=== PATIENT | female | born 1955 | race Caucasian/White ===

== ENCOUNTER → 2021-02-02 08:55 | Outpatient (BNVA) | payer OTHER, SELFPAY | PROVIDERS: PCP Nurse Practitioner Family; Referring Provider Nurse Practitioner Family; Visit Provider Specialist | DX: M54.2 Cervicalgia (principal); G44.209 Tension-type headache, unspecified, not intractable | CPT/HCPCS: 99204 ==

== ENCOUNTER 2022-01-12 11:10 | Outpatient (CLI) | payer MEDICARE, SELFPAY ==
--- NOTE | 2022-01-12 11:20 | XR_ITS ---
WS: [id number] DEXA (DUAL ENERGY X-RAY ABSORPTIOMETRY) Bone mineral density was performed using a Pay with a Tweet machine. HISTORY: MENOPAUSAL COMPARISON: None available. Lumbar spine BMD (L1-L4): 0.831 g/cm2 T score: -2.9 Z score: -1.8 Total hip BMD: Left: 0.694 g/cm2. T score: -2.5 Z score: -1.6 Right: 0.814 g/cm2. T score: -1.5 Z score: -0.6 10 year probability of a major osteoporotic fracture is 27.5%. XR/XR DEXA axial skeleton* 24144 IMPRESSION: OSTEOPOROSIS based upon the WHO classification for females.
--- NOTE | 2022-01-12 11:20 | MM_ITS ---
WS: [id number] Bilateral screening 3D tomosynthesis digital mammogram, 01/12/2022 Clinical Data: SCREENING Comparison: 05/26/2020, 05/10/2020. Findings: The breast parenchymal pattern shows fat replacement. No spiculated masses or clustered calcification s are seen. There are no secondary signs of carcinoma. There are mole markers on the left breast. The re are lymph nodes in both axilla. MM/[place] [id number] Impression: 1. Negative bilateral mammogram unchanged. 2. Recommend annual screening mammograms. BIRADS: 1-Negative FOLLOW UP: 1 Year Follow-up The CAD credit rating checker was used.
== END 2022-01-12 11:11 | disposition home or self-care (01) ==
LOC: RAD 11:16
PROVIDERS: PCP Nurse Practitioner Family; Visit Provider Nurse Practitioner Family
DX: Z12.31 Encounter for screening mammogram for malignant neoplasm of breast (principal); Z78.0 Asymptomatic menopausal state; M81.0 Age-related osteoporosis without current pathological fracture
CPT/HCPCS: 77063; 77067; 77080

== ENCOUNTER → 2022-02-07 13:15 | Outpatient (BNVA) | payer MEDICARE, SELFPAY | PROVIDERS: PCP Nurse Practitioner Family; Visit Provider Internal Medicine | DX: R07.9 Chest pain, unspecified (principal); E78.00 Pure hypercholesterolemia, unspecified | CPT/HCPCS: 93005; 99204 ==

== ENCOUNTER 2022-05-06 01:31 | Observation (INO) | payer MEDICARE, SELFPAY ==
[2022-05-06] VITALS (8 sets, daily range): BP systolic 106–131; BP diastolic 61–70; PULSE 46–51; RESP 16–19; TEMP 36.4–37; O2SAT 97–99; BMI 28.1; BMI 26.4
--- NOTE | 2022-05-06 01:38 | PC.NURSE ---
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 disc and copy of chart received as well, given to dr lord. awaiting orders.
--- NOTE | 2022-05-06 01:56 | W.ED.GENADLT ---
HPI - General Adult General: Chief complaint: General Medical Stated complaint: KIDNEY STONE Time Seen by Provider: 05/06/22 01:35 Source: patient History of Present Illness: 66-year-old female with a history of kidney stones. She presents with left-sided flank pain that started earlier in the evening. She denies any fever. The pain was significant on her presentation to the outside facility. She rates it at a 4-4-1/2 now. She is afebrile Onset (ago): hour(s) Location: abdomen and left Radiation: back Associated symptoms: Reports nausea; Deny chest pain, dyspnea, fevers/chills, rash, short of breath or vomiting Review of Systems Const: Denies: fever(s) Card: Denies: chest pain Resp: Denies: dyspnea GI: Reports: abdominal pain and nausea; Denies: vomiting : Reports: flank pain Musc: Reports: back pain Skin/Breast: Denies: rash PFSH ED PFSH: Medical History Hypercholesteremia Surgical History History of cholecystectomy History of total hysterectomy History of tubal ligation Family History Mother Cancer Diabetes Social History Smoking and tobacco status: never smoked Alcohol intake: never Physical Exam Const: GENERAL APPEARANCE: cooperative; not ill appearing HENMT: COMMON NORMALS: normocephalic and atraumatic HEAD & SCALP: normocephalic and atraumatic Eye: COMMON NORMALS: Equal, round and reactive pupils present and EOMs intact bilaterally PUPIL: Yes Equal, round and reactive pupils present Neck/C-Spine: GENERAL: Yes trachea midline Resp: COMMON NORMALS: normal respiratory effort, No use of accessory muscles and clear to auscultation bilaterally AUSCULTATION: clear to auscultation bilaterally Cardio: COMMON NORMALS: regular rate and regular rhythm RATE: regular rate RHYTHM: regular rhythm GI: COMMON NORMALS: Normal to inspection, nondistended, normoactive bowel sounds present and Soft to palpation PALPATION: Yes Soft to palpation : BLADDER/KIDNEY EXAM: Yes CVA tenderness on the left Back/Pelvis: GENERAL BACK: Yes CVA tenderness Neuro: IVAN COMA SCALE: document GCS findings [place] coma scale eye opening: Spontaneous [place] coma scale verbal response: Orientated Ivan coma scale motor response: Obey commands [place] coma scale total score: 15 Psych: COMMON NORMALS: cooperative Course Vital Signs: Vital signs: Vital Signs Temperature 97.9 F 05/06/22 01:35 Pulse Rate 46 L 05/06/22 02:09 Respiratory Rate 17 05/06/22 02:09 Blood Pressure 128/70 05/06/22 02:09 Pulse Oximetry 98 05/06/22 02:09 Oxygen Delivery Me thod 05/06/22 02:09 MDM - General Adult Medical Decision Making Spoke with urology about this patient. She has a left-sided UPJ 5 mm stone. She has 6-10 white blood cells with leukocyte esterase in her urine. Minimal contamination. No findings suggestive of pyelonephritis on the CT. Her white blood cell count was normal. Her pain is decently well controlled. She is given morphine here in the ER. She did receive 10 mg of IV Toradol at the outside facility. She also received Rocephin there. Urology requests admission, continuing IV fluids and antibiotics as well as pain control. They will evaluate later in the morning. She will be placed on liquids after lunch in case procedure necessary this morning. Discharge Plan Discharge Patient Disposition: Admitted As Inpatient Admit Provider: Gerber Moore Clinical Impression: Ureterolithiasis, Urinary tract infection Condition: Stable Coding Level of Care Code ED Decorating Kiln Operator for Yodit Fwd Exam Comprehensive
[2022-05-06] MEDS: ondansetron 2 mg/ML SDV 2 mL 4 MG IVP (02:05)
[2022-05-06] MEDS: morphine 4 mg/mL SDV 1 mL IVP (02:05)
--- NOTE | 2022-05-06 02:56 | PC.NURSE ---
report called to prateek paez, patient accepted to 250-2 med surg.
[2022-05-06] MEDS: cefTRIAXone 1,000 MG in sodium chloride 0.9% (plus) 50 ML 100 MG IV (04:22)
[2022-05-06] MEDS: pantoprazole 40 mg SDV IVP (04:22)
[2022-05-06] MEDS: sodium chloride 0.9% 1,000 ML 100 ML IV (04:23)
[2022-05-06 05:24] LABS: Basophils % 0.6 %; Eosinophils # 0.1 10^3/uL (0.0-0.8); Eosinophils % 1.3 %; Hematocrit 40.6 % (37.0-47.0); Hemoglobin 12.7 g/dL (11.5-15.3); Lymphocytes # 2.7 10^3/uL (0.8-4.8); Lymphocytes % 39.3 %; Mean Corpuscular HGB Conc 31.3 g/dL (30.0-36.0); Mean Corpuscular Hemoglobin 30.2 pg (28.0-34.0); Mean Corpuscular Volume 96.4 fl (81-99); Mean Platelet Volume 9.9 fL (7.4-10.4); Monocytes # 0.6 10^3/uL (0.2-0.9); Monocytes % 7.9 %; Neutrophils # 3.54 10^3/uL (1.8-7.7); Neutrophils % 50.8 %; Nucleated Red Blood Cells % 0 %; Platelet Count 190 10^3/cmm (130-400); Red Blood Count 4.21 10^6/uL (4.1-5.3); Red Cell Distribution Width 13.3 % (12.1-15.1)
[2022-05-06 05:52] LABS: Alanine Aminotransferase 16 U/L (0-33); Albumin Level 3.6 g/dL (3.5-5.2); Alkaline Phosphatase 48 U/L (35-105); Anion Gap 12.2 (5-19); Aspartate Amino Transferase 14 U/L (0-32); Blood Urea Nitrogen 10 mg/dL (8-23); Calcium 9.3 mg/dL (8.5-10.5); Carbon Dioxide 23 mmol/L (22-29); Chloride 110 mmol/L (98-107); Globulin 2.1 g/dL (1.3-4.6); Glomerular Filtration Rate 83.7 mL/min (90-130); Glucose 83 mg/dL (65-115); Osmolality Calculated 290 mOsm/kg (285-295); Potassium 4.2 mmol/L (3.5-5.1); Sodium 141 mmol/L (136-145); Total Bilirubin 0.3 mg/dL (0.15-1.2); Total Protein 5.7 g/dL (6.6-8.7)
--- NOTE | 2022-05-06 08:22 | XRR_ITS ---
PROCEDURE INFORMATION: Exam: XR Abdomen Exam date and time: 05/06/2022 8:42 AM Age: 66 years old Clinical indication: Abdominal pain; Flank; Left; Additional info: Follow up ureteral stone TECHNIQUE: Imaging protocol: Radiologic exam of the abdomen. Views: Frontal supine view of the abdomen. 1 View. COMPARISON: CT abdomen pelvis w con* [id number] 05/05/2022 11:23 PM FINDINGS: Gastrointestinal tract: No dilated gas-filled loops of bowel. Moderate to large amount of stool in the colon. Intraperitoneal space: Surgical clips in the pelvis and left upper quadrant. Organs: No radiopaque renal or ureteral calculus is evident, with interference in visualization of the kidneys and ureters by overlying enteric contents. Right nephrolithiasis evident on the prior comparison CT scan. Bones/joints: Slight curvature of the lumbar spine convex to the right. XR/XR KUB [id number] IMPRESSION: No radiopaque ureteral calculus visualized.
--- NOTE | 2022-05-06 08:24 | P.HP_ITS ---
Providers/Chief Complaint Admitting Physician: Gerber Moore MD Primary Care Provider: YURY Bourgeois Chief Complaint: Left UPJ stone History of Present Illness Gladis Hansen is a 66 year old female who is evaluated yesterday evening at the [facility] emergency department found to have roughly 5 mm left UPJ stone with obstructive changes. Her symptoms were severe. Work-up: Urinalysis showed mild pyuria with 6-10 white blood cells and 0-6 epithelial cells.. No fever or chills. No unstable hemodynamics. There is no evidence of obstructive pyelonephritis clinically or on CT scan findings. White count was not elevated. Creatinine was normal. Was admitted for symptomatic control as well as coverage with antibiotics because of the pyuria. Other pertinent information: History positive for previous stones Recently evaluated by cardiology for some chest discomfort with a stress test tentatively planned for sometime in the near future. EKG showed no ischemia or rhythm abnormalities during that visit on 02/07/2022. History of osteoporosis Medications/Allergies Home Medications Medication Instructions Recorded Confirmed Last Taken Type naproxen sodium 220 mg capsule 220 mg PO BID PRN Pain 02/02/21 05/06/22 Unknown History (Aleve) gabapentin 300 mg capsule 300 mg PO DAILY PRN Heartburn 02/07/22 05/06/22 Unknown History alendronate 70 mg tablet 70 mg PO .weekly 90 days #12 tabs 03/07/22 05/06/22 05/04/22 09:00 Rx atorvastatin 10 mg tablet 10 mg PO DAILY #30 tabs 04/27/22 05/06/22 05/04/22 09:00 Rx Allergies Allergy/AdvReac Type Severity Reaction Status Date / Time No Known Allergies Allergy Verified 03/07/22 08:18 PFSH Acute PFSH: Medical History Hypercholesteremia Surgical History History of cholecystectomy History of total hysterectomy History of tubal ligation Family History Mother Cancer Diabetes Social History Smoking and tobacco status: never smoked Alcohol intake: never Vitals/I&O/Wt Last Vital Signs Temp 97.5 F L 05/06/22 07:59 Pulse 48 L 05/06/22 07:59 Resp 16 05/06/22 07:59 BP 106/64 05/06/22 07:59 Pulse Ox 97 05/06/22 07:59 O2 Del Method 05/06/22 07:59 05/05/22 05/06/22 05/06/22 22:59 06:59 14:59 Intake Total 50 / 50 Balance 50 / 50 Weight last 48 hrs Weight 164 lb Weight 164 lb Data : 05/06/22 04:10 05/06/22 04:10 A&P Assessment and plan (1) Ureterolithiasis: A 5 mm left UPJ stone diagnosed 05/05/2022. Status: Acute (2) Hypercholesteremia: Status: Acute (3) Age related osteoporosis: Status: Acute Attestations Medical Necessity Statement*: Could not control her symptoms related to renal colic. Additional concern about pyuria and the potential for obstructive pyelonephritis Coding Level of Care Code Acute Electric Blanket Packer for Yodit Adames Diagnoses Ureterolithiasis N20.1 Hypercholesteremia E78.00 Age related osteoporosis M81.0
--- NOTE | 2022-05-06 10:11 | P.SS_ITS ---
Short Stay Summary Providers Date of Admit/Discharge: 05/06/22 Attending Provider: Gerber Moore MD Primary Care Provider: YURY Bourgeois Chief Complaint: Left UPJ stone HPI History of Present Illness Gladis Hansen is a 66 year old female who was evaluated yesterday evening at the [facility] emergency department. A CT scan demonstrated per the ED physician's report a 5 mm LEFT UPJ stone. The preceding symptoms were primarily left upper quadrant abdominal pain not typical for her prior stones. There was no back component or radiation down to the left lower quadrant. No renal colicky component. She denied dysuria urgency frequency or other UTI type symptoms. She did describe her left upper quadrant pain as severe. She did not think it mimicked her prior stone type symptoms. Work-up: Urinalysis showed mild pyuria with 6-10 white blood cells and 0-6 epithelial cells.. No fever or chills. No unstable hemodynamics. There was no evidence of obstructive pyelonephritis clinically or on CT scan findings. White count was not elevated. Creatinine was normal. Was evaluated by her ED physician to assess whether she needed emergency surgery or not. She was not toxic. Was admitted for symptomatic control as well as coverage with antibiotics because of the pyuria with plans for evaluation this morning. Other pertinent information: History positive for previous stones Recently evaluated by cardiology for some chest discomfort with a stress test tentatively planned for sometime in the near future. EKG showed no ischemia or rhythm abnormalities during that visit on 02/07/2022. History of osteoporosis Per CT scan had not been sent as of my arrival this morning. It was then shared electronically. Upon my review of the CT scan it was clear that she did NOT have a left ureteral or renal calculus. There is no obstructive changes on the left side. She did have 2 small nonobstructing renal calculi in the lower pole calyx. It also became clear that her symptoms of left upper quadrant pain more typical for GI source. They have not recurred since her admission. Eventually the report from the CT scan was obtained and it agreed with my assessment. Does have a history of recurrent urolithiasis and was treated on multiple occasions by Dr. Bose at [facility]. Her last treatment was about 6 years ago. She is unaware of having had any stones since that time. On evaluation today she was deemed a good candidate for discharge home. Review of Systems Const: Denies: fever(s) or chills Eyes: Denies: change in vision ENMT: Denies: hoarseness Card: Denies: chest pain or palpitations Resp: Denies: dyspnea or productive cough GI: Reports: abdominal pain; Denies: constipation : Denies: flank pain, difficulty voiding, dysuria, urinary frequency, urinary urgency or urinary hesitancy Musc: Denies: joint redness Skin/Breast: Denies: rash Neuro: Denies: confusion or Slurred speech present Psych: Denies: anxiety or depression Endo: Denies: flushing Sherman/Lymph: Denies: easy bruising or easy bleeding All/Imm: Denies: acute wheezing Home Meds/Allergies Home Medications and Allergies Home Medications Medication Instructions Recorded Confirmed Type naproxen sodium 220 mg capsule 220 mg PO BID PRN Pain 02/02/21 05/06/22 History (Aleve) gabapentin 300 mg capsule 300 mg PO DAILY PRN Heartburn 02/07/22 05/06/22 History Allergies Allergy/AdvReac Type Severity Reaction Status Date / Time No Known Allergies Allergy Verified 03/07/22 08:18 PFSH Acute PFSH: Medical History Hypercholesteremia Urolithiasis Surgical History History of cholecystectomy History of lithotripsy History of total hysterectomy History of tubal ligation Status post laser lithotripsy of ureteral calculus Family History Mother Cancer Diabetes Social History Smoking and tobacco status: never smoked Alcohol intake: never Vitals/I&O/Wt Last Vital Signs Temp 97.5 F L 05/06/22 07:59 Pulse 48 L 05/06/22 07:59 Resp 16 05/06/22 07:59 BP 106/64 05/06/22 07:59 Pulse Ox 97 05/06/22 07:59 O2 Del Method 05/06/22 07:59 05/05/22 05/06/22 05/06/22 22:59 06:59 14:59 Intake Total 50 / 50 Balance 50 / 50 Weight last 48 hrs Weight 164 lb Weight 164 lb Physical Exam Const: COMMON NORMALS: no acute distress, alert and well nourished GENERAL APPEARANCE: well kempt and well developed ORIENTATION/CONSCIOUSNESS: not confused HENMT: COMMON NORMALS: normocephalic HEAD & SCALP: normal to inspection and normocephalic Eye: COMMON NORMALS: conjunctivae normal and no scleral icterus CONJUNCTIVA: Yes conjunctivae normal Neck/C-Spine: GENERAL: Yes normal visual inspection Lymph: LYMPHATIC: no lymphedema noted Chest: OTHER: Normal movements Resp: COMMON NORMALS: normal respiratory effort and clear to auscultation bilaterally EFFORT & INSPECTION: Yes able to speak in complete sentences, No labored and No Actively coughing AUSCULTATION: clear to auscultation bilaterally Cardio: COMMON NORMALS: regular rate and regular rhythm RATE: regular rate RHYTHM: regular rhythm GI: OTHER: Nontender. No palpable masses. Bowel sounds are normoactive. : OTHER: Bladder nondistended Back/Pelvis: OTHER: No CVA tenderness Extremity: COMMON NORMALS: no clubbing, cyanosis or edema Neuro: COMMON NORMALS: no focal motor deficits SENSORIUM/ORIENTATION: Yes alert Psych: COMMON NORMALS: mental status grossly normal APPEARANCE: Yes grossly normal and Yes well kempt ATTITUDE: Yes calm and Yes engaged Skin: COMMON NORMALS: no rashes or lesions noted and no jaundice GENERAL SKIN EXAM: no rashes or lesions noted Hospital Course Admission Diagnoses 1. Presumptive diagnosis of left UPJ stone and UTI based on verbal report from [facility] ED. Hospital Course She was direct admitted from [facility] ER into the emergency department for evaluation of whether or not she was clinically ill enough to go emergently to the operating room based on the transfer diagnosis of obstructive pyelonephritis. She was nontoxic and without any evidence of any pyelonephritis or sepsis on ED evaluation and therefore was admitted for further treatment of the stone and control of symptoms. On the morning of her admission the complete record was eventually obtained from [facility] including her films which I reviewed personally. The CT scan did NOT demonstrate a left UPJ stone in fact no stones were seen at all on the left side. She did have 2 small stones in her right kidney that were not obstructing. It was felt that on review of her symptoms that her pain was more likely to be a GI source possibly gastric distention. Her symptoms had resolved by time of my evaluation. It was also felt that the urine was not truly infected. She had no local symptoms and she did have multiple squamous epithelial cells on the specimen. Final report on the CT interpretation from [facility] agreed with my interpretation. The only additional suggestion on the final report was that she had a lot of retained stool in the colon consistent with CONSTIPATION. Its not clear whether this was source of her symptoms or not. After review of all the above with the patient and for thorough examination she was deemed a good candidate for discharge to home. She follows with Dr. Jimenez. Encouraged her to check with him if this left upper quadrant pain recurs. Discharge Summary See above SSS Data Data Completed and Pending: Pending at discharge Category Date Time Status XR KUB [id number] Rout ine Exams 05/06/22 08:22 Taken Diagnoses at Discharge Discharge Diagnosis (1) Left upper quadrant pain: Details from hospital stay: Resolved. Not renal colicky. More consistent with GI source. Encouraged follow-up with primary care Status: Acute (2) Hypercholesteremia: Status: Acute (3) Age related osteoporosis: Status: Acute (4) Urolithiasis: Details from hospital stay: No evidence of acute urolithiasis problems. She does have 2 small stones in her right kidney that are nonobstructing. Does have a long history of recurrent stones and need for long-term follow-up for that. Her pain was not felt to be related to stones after thorough examination and review of available objective i nformation. Also did not clinically have evidence of UTI. Status: Acute Discharge Plan Discharge Patient Disposition: Home Condition: Stable Prescriptions: Continued naproxen sodium [Aleve] 220 mg capsule 220 mg PO BID PRN (Reason: Pain) gabapentin 300 mg capsule 300 mg PO DAILY PRN (Reason: Heartburn) alendronate 70 mg tablet 70 mg PO .weekly 90 Days Qty: 12 0RF atorvastatin 10 mg tablet 10 mg PO DAILY Qty: 30 5RF Discharge Orders: Discharge Order (Routine); Ordered 05/06/22 Ordered By: Gerber Moore Referrals: Ladonna Elliott FNP [Primary Care Provider] - (Please call and schedule a follow up appointment with Primary Care on Monday 05/07. ) Gerber Moore MD [Physician] - 6 months ([place]) Kel Jimenez MD [Hospitalist] - (As scheduled) Discharge Diet: Advance as tolerated Discharge Activity: Resume usual activity Patient Instructions: Hypercholesteremia, Headache, Opioid Safety Activity Restrictions/Additional Instructions: UROLOGY instructions 1. On final conclusion and review of the available data it is clear that you did NOT have a stone on the left side. 2. You do though have 2 small nonobstructing stones in the right kidney and these need to be followed. 3. It is unclear exactly why you had such significant pain in the left upper quadrant but more likely bowel related. 4. Instructions for stone risk reduction strategies: Drink enough fluids to avoid at least 2 to 3 L of urine output per 24-hour Reduce salt intake Add citrus to your fluids Try and decrease your oxalate intake including almonds, spinach, nuts of any kind, leafy green vegetables. Please do an Internet search for more complete list. When you do consume foods that are high in oxalate, consume dairy products with those foods and with meals to reduce oxalate absorption. Drinking a lot of water around the time of oxalate consumption also will help. 5. We will plan a follow-up visit in roughly 6 months with a KUB. Please call sooner if you think you are passing a stone. 6. And your next follow-up with Dr. Jimenez it might be worth talking about this episode to see if there is anything else that needs to be worked up. Attestations Medical Necessity Statement*: She is capable of being managed as an outpatient now. Time Spent in Patient Care*: greater than 30 min Quality Metrics Clinical Quality Measures: [ No reported AMI, CVA or VTE this stay ] Coding Level of Care Code Acute Instructional Services Librarian for Chg Fwd Diagnoses Left upper quadrant pain R10.12 Hypercholesteremia E78.00 Age related osteoporosis M81.0 Urolithiasis N20.9
--- NOTE | 2022-05-06 12:42 | PC.NURSE ---
discharge instructions given and explained.pt verb understanding of instructions.discharged via w/c to exit at 1220.spouse to drive pt home.
== END 2022-05-06 12:20 | disposition home or self-care (01) ==
LOC: ER 02:19 → MEDSURG 03:09
PROVIDERS: Admitting Provider Urology; Emergency Provider Emergency Medicine; PCP Nurse Practitioner Family; Visit Provider Urology
DX: R10.12 Left upper quadrant pain (principal); N20.0 Calculus of kidney; E78.00 Pure hypercholesterolemia, unspecified; M81.0 Age-related osteoporosis without current pathological fracture
CPT/HCPCS: 36415; 74018; 80053; 85025; 96365; 96375; 99285; C9113; G0378; J0696; J2270; J2405; J7030

== ENCOUNTER 2022-06-13 07:27 | Outpatient (CLI) | payer MEDICARE, SELFPAY ==
[2022-06-13 07:50] VITALS: BMI 25.5
--- NOTE | 2022-06-13 08:05 | NMCV_ITS ---
NM livier perf SPECT r/s* [id number] Gladis Hansen Age: 66 Gender: F : 1955 Exam Date: 06/13/2022 08:47 Ordering Phys: Demetris Rey M.D ([email or web address]) Technologist: POPPY Holm Exam [facility] Indications: CHEST PAIN STRESS TEST [facility] IMAGE PROTOCOL Rest/Stress 1 Exercise Day Radiopharmaceutical Dose (mCi) Administration Site Administered by Rest: Tc-99m 10.9 IV POPPY Mar Sestamibi Stress:Tc-99m 32.7 IV POPPY Mar Sestamibi Rest: 13-Jun-2022 60 Discovery 630 Stress: 13-Jun-2022 15 Discovery 630 Radiopharmaceutical was injected at 87 % maximum heart rate. Images obtained in supine and prone position. SPECT RESULTS Technical Quality: Excellent Raw Data Analysis: Normal Image Corrections: No attenuation or motion correction applied Summed Stress Score: 2 Summed Rest Score: 1 Summed Difference Score: 1 PERFUSION FINDINGS There is small in size mostly fixed perfusion defect in apical lateral wall. This is consistent with small sized prior infarct with minimal jack-infarct ischemia in the left circumflex artery territory. FUNCTIONAL RESULTS (calculated via Gated SPECT) Stress Image LV EF (%): 79 Stress EDV (mL):66 TID: 0.84 Stress ESV (mL):14 FUNCTIONAL FINDINGS: There is normal left ventricular systolic function. IMPRESSIONS 1. 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 2. LV systolic function is normal. Demetris Rey MD (Electronically Signed) Final Date: 13 June 2022 12:27 S
--- NOTE | 2022-06-13 08:05 | ECG_ITS ---
[facility] Test Date: 2022-06-13 Pat Name: Gladis Hansen Department: Room: Gender: Female Crude Tester: : 1955 Requested By: Demetris Rey Order Number: [id number] Khoi MD: Demetris Rey M.D. Interpretive Statements NAME OF STUDY: EXERCISE SESTAMIBI STRESS TEST INDICATION: [Chest Pain, ] EXERCISE DATA: The patient was exercised by Sunny protocol. Baseline heart rate was 61 beats per minute. Baseline blood pressure was 137/53 millimeters of mercury. Target heart rate was 131 beats per minute. Maximum heart rate achieved was 146, which was 111% of the target heart rate. Maximum blood pressure was 160/113millimeters of mercury. Total exercise time was 7 minutes and 17 seconds. Maximum METs achieved was 10.2. The reason for ending the test was completion of the protocol. The patient complained of shortness of breath during the stress test, which then resolved at the end of the test. ELECTROCARDIOGRAM: BASELINE: Showed sinus rhythm, normal axis, no significant ST-T changes at the baseline noted. [] EXERCISE: At the peak exercise level, [] No significant ST-T changes suggestive of ischemia noted. [] RECOVERY: During the recovery period, heart rate dropped appropriately. No significant ST-T changes in the recovery suggestive of ischemia noted. [] CONCLUSION: 1. Exercise capacity good. 2. Heart rate response was appropriate 3. Blood pressure response was appropriate 4. Symptoms not suggestive of ischemia. 5. Electrocardiogram portion of the stress test was not suggestive of ischemia. 6. Nuclear scan will be documented separately. Electronically Signed On 06-14-2022 11:51:32 CDT by Demetris Rey M.D. [email or web address]
[2022-06-13 09:58] VITALS: BP 129/84; PULSE 71
== END 2022-06-13 07:28 | disposition home or self-care (01) ==
LOC: CDL 07:30
PROVIDERS: PCP Nurse Practitioner Family; Visit Provider Internal Medicine
DX: R07.9 Chest pain, unspecified (principal)
CPT/HCPCS: 78452; 93017; A9500

== ENCOUNTER → 2022-09-06 15:44 | Outpatient (BNVA) | payer MEDICARE, SELFPAY | PROVIDERS: PCP Family Medicine; Visit Provider Internal Medicine | DX: R07.9 Chest pain, unspecified (principal); E78.00 Pure hypercholesterolemia, unspecified | CPT/HCPCS: 99213 ==

== ENCOUNTER → 2023-06-11 10:26 | Outpatient (BNVA) | payer MEDICARE, SELFPAY | PROVIDERS: PCP Family Medicine; Visit Provider Nurse Practitioner Family | DX: S90.31XA Contusion of right foot, initial encounter (principal); X58.XXXA Exposure to other specified factors, initial encounter | CPT/HCPCS: 73630 ==

== ENCOUNTER → 2023-07-12 15:17 | Outpatient (BNVA) | payer MEDICARE, SELFPAY | PROVIDERS: PCP Family Medicine; Visit Provider Nurse Practitioner Family | DX: J02.9 Acute pharyngitis, unspecified (principal); J06.9 Acute upper respiratory infection, unspecified; L30.9 Dermatitis, unspecified | CPT/HCPCS: 87071; 87880 ==

== ENCOUNTER → 2023-09-25 08:44 | Outpatient (BNVA) | payer MEDICARE, SELFPAY | PROVIDERS: PCP Family Medicine; Visit Provider Nurse Practitioner Family | DX: E78.00 Pure hypercholesterolemia, unspecified (principal); Z79.899 Other long term (current) drug therapy; R53.83 Other fatigue; U07.1 COVID-19; M81.0 Age-related osteoporosis without current pathological fracture | CPT/HCPCS: 80053; 80061; 81003; 82306; 83036; 84443; 85025; 87077; 87086; 87184 ==

== ENCOUNTER → 2023-09-26 09:14 | Outpatient (BNVA) | payer MEDICARE, SELFPAY | PROVIDERS: PCP Family Medicine; Referring Provider Nurse Practitioner Family; Visit Provider Surgery | DX: K59.09 Other constipation | CPT/HCPCS: 99204 ==

== ENCOUNTER 2023-10-09 10:54 | Day surgery (SDC) | payer MEDICARE, SELFPAY ==
[2023-10-09 11:08] VITALS: BP 136/84; PULSE 64; RESP 18; TEMP 36.6; O2SAT 97
[2023-10-09] MEDS: sodium chloride 0.9% 1,000 ML 30 ML IV (11:13)
--- NOTE | 2023-10-09 12:31 | P.ANESASSM_ITS ---
Pre-Anesthetic Assessment Height/Weight: Height 1.7 m Weight 70.307 kg Temp Pulse Resp BP Pulse Ox O2 Del Method 97.9 F 64 18 136/84 97 Room Air 10/09/23 11:08 10/09/23 11:08 10/09/23 11:08 10/09/23 11:08 10/09/23 11:08 10/09/23 11:08 Preop Diagnosis: screening, constiption Operation Date: 10/09/23 12:00 Proposed Procedures p 55716 screening colonoscopy G0121 screen colon a risk Z12.11 K59.09(Not Applicable) - Anthony Patel, DO Was Beta Darion taken within 24 hours: N/A Was Clonidine taken within 24 hours: N/A Last intake: Intake Last Liquid Date 10/08/23 Last Liquid Time 20:00 Last Solid Date 10/07/23 Last Solid Time 20:00 Social No alcohol and No tobacco Exam alert, oriented x 3, clear to auscultation bilaterally and regular rate & rhythm Airway Submandibular: within normal limits Cervical ROM: within normal limits Mallampati: Class I Dentition: chipped Comments: Comments: chipped teeth front middle History/ROS No significant history except as noted Pulmonary None reported None reported Hepatic None reported GI None reported Metabolic None reported Musc/skel None reported Neuropsych None reported Anesthetic Plan ASA status: 2 Anesthesia: Anesthesia Evaluation and General Risk of > 500 ml blood loss (7ml/kg in children): Yes, adequate IV access and fluids planned Medications/Allergies Home Medications Medication Instructions Recorded Confirmed Last Taken Type naproxen sodium 220 mg capsule 220 mg PO BID PRN Pain 02/02/21 10/07/23 2 Weeks Ago History (Aleve) ~09/23/23 alendronate 70 mg tablet See Rx Instructions .Route 06/03/23 10/07/23 10/03/23 Rx .COMPLEX #12 tabs atorvastatin 10 mg tablet 10 mg PO DAILY #30 tabs 09/17/23 10/07/23 10/07/23 Rx cholecalciferol (vitamin D3) 1,250 50,000 unit PO .weekly 90 days #12 09/25/23 10/07/23 Unknown Rx mcg (50,000 unit) capsule caps Allergies Allergy/AdvReac Type Severity Reaction Status Date / Time No Known Allergies Allergy Verified 09/26/23 09:15 Current Medications Generic Name Dose Route Start Last Admin Trade Name Freq PRN Reason Stop Dose Admin Sodium Chloride 1,000 mls @ 30 mls/hr 10/09/23 11:00 10/09/23 11:13 Sodium Chloride 0.9% IV 10/10/23 10:59 30 mls/hr .Q24H DRAKE Administration PFSH Anesthesia Medical History Vitamin D deficiency Colon cancer screening COVID-19 Upper respiratory infection Epidermoid cyst Urolithiasis Keratoacanthoma Hypercholesteremia Tension type headache Surgical History Status post laser lithotripsy of ureteral calculus History of lithotripsy History of cholecystectomy History of tubal ligation History of total hysterectomy surgery 2007 [facility] Family History Mother Cancer Diabetes Social History Smoking and tobacco/nicotine status: never used tobacco/nicotine Alcohol intake: never Data Anesthesia Cardiac Studies: Sestamibi Stress Test (Cardiology) 06/13
--- NOTE | 2023-10-09 12:58 | W.PM.OPSUD ---
Surgery/Procedure H&P Update DATE OF PROCEDURE: October 09, 2023 DATE H&P PERFORMED: 09/26/23 H&P UPDATE INFORMATION: I have reviewed H&P completed within last 30 days, I have examined patient prior to procedure and No changes to prior documentation PREOP DIAGNOSIS: screening, constiption PLANNED PROCEDURE: Operation Date: 10/09/23 12:00 Proposed Procedures p 18425 screening colonoscopy G0121 screen colon a risk Z12.11 K59.09(Not Applicable) - Anthony Patel DO
[2023-10-09 13:24] VITALS: BP 98/70; PULSE 86; RESP 16; TEMP 36.1; O2SAT 94
[2023-10-09 13:40] VITALS: BP 125/78; PULSE 81; RESP 18; O2SAT 98
--- NOTE | 2023-10-09 14:52 | ANE.PACU2 ---
Inpatient post-anesthesia follow up: Airway intact: Yes Vital signs: Temperature 97 F Pulse Rate 81 Respiratory Rate 18 Blood Pressure 125/78 Pulse Oximetry 98 Oxygen Delivery Me thod Room Air Oxygen Flow Rate Fraction of Inspir ed Oxygen Hydration adequate: Yes Nausea and vomiting: No Pain level: 2 Mental status: Baseline
== END 2023-10-09 14:11 | disposition home or self-care (01) ==
PROVIDERS: PCP Nurse Practitioner Family; Visit Provider Surgery
PROC: 0DJD8ZZ Inspection of Lower Intestinal Tract, Via Natural or Artificial Opening Endoscopic (ICD-10-PCS; CPT 45378; principal; 2023-10-09 12:00)
DX: K59.09 Other constipation (principal); K64.8 Other hemorrhoids; Z86.16 Personal history of COVID-19
CPT/HCPCS: 45378; G0121; J2704; J7030

== ENCOUNTER 2023-10-30 09:54 | Outpatient (CLI) | payer MEDICARE, SELFPAY ==
--- NOTE | 2023-10-30 10:00 | MM_ITS ---
WS: [id number] BILATERAL SCREENING DIGITAL TOMOSYNTHESIS MAMMOGRAM WITH CAD HISTORY: Z12.31 - Encounter for screening mammogram for malignant ... COMPARISON: 01/12/2022, 05/10/2020 Bilateral CC and MLO views with tomosynthesis and synthetic mammography submitted. Computer aided det ection analyzed. Breast composition: There are scattered areas of fibroglandular density. No suspicious masses, microc alcifications or architectural distortion. Stable lobulated nodule 9:00 RIGHT breast at a middle dept h. IMPRESSION: MM/[place] [id number] BI-RADS: 2-Benign FOLLOW UP: 1 Year Follow-up
== END 2023-10-30 09:55 | disposition home or self-care (01) ==
LOC: MOBLMAM 10:02
PROVIDERS: PCP Nurse Practitioner Family; Visit Provider Nurse Practitioner Family
DX: Z12.31 Encounter for screening mammogram for malignant neoplasm of breast (principal)
CPT/HCPCS: 77063; 77067; 80053; 80061; 81003; 82306; 83036; 84443; 85025; 87086

== ENCOUNTER → 2023-12-31 09:14 | Outpatient (BNVA) | payer MEDICARE, SELFPAY | PROVIDERS: PCP Nurse Practitioner Family; Visit Provider Nurse Practitioner Family | DX: N39.0 Urinary tract infection, site not specified (principal); R07.81 Pleurodynia; R07.1 Chest pain on breathing | CPT/HCPCS: 71046; 81003; 87077; 87086; 87184 ==

== ENCOUNTER 2024-01-04 11:18 | Outpatient (CLI) | payer MEDICARE, SELFPAY ==
--- NOTE | 2024-01-04 11:38 | XRR_ITS ---
PROCEDURE INFORMATION: Exam: XR Ribs Exam date and time: 01/04/2024 11:41 AM Age: 68 years old Clinical indication: Chest wall pain; Bilateral; Additional info: Chest pain with inspiration TECHNIQUE: Imaging protocol: Radiologic exam of the of the ribs. Views: 3 views. Bilateral ribs. COMPARISON: CR XR chest 2V* [id number] 12/31/2023 10:27 AM FINDINGS: Bones/joints: 3.1 cm lucent lesion in the proximal left humeral metadiaphysis with some contour abnormality in this region raising concern for pathologic fracture. This appears similar to the prior radiographs. Soft tissues: Normal. XR/XR ribs BI 3V* [id number] IMPRESSION: There is a 3.1 cm lucent lesion in the proximal left humeral metadiaphysis. Minimal contour abnormality in this region raises concern for pathologic fracture. CT scan and/or MRI of the left shoulder to include the proximal humerus recommended as clinically warranted.
== END 2024-01-04 11:19 | disposition home or self-care (01) ==
PROVIDERS: PCP Nurse Practitioner Family; Visit Provider Registered Nurse Neonatal Intensive Care
DX: R07.1 Chest pain on breathing (principal); M75.92 Shoulder lesion, unspecified, left shoulder
CPT/HCPCS: 71110

== ENCOUNTER 2024-01-06 12:43 | Outpatient (CLI) | payer MEDICARE, SELFPAY ==
--- NOTE | 2024-01-06 13:30 | XR_ITS ---
WS: [id number] DEXA (DUAL ENERGY X-RAY ABSORPTIOMETRY) Bone mineral density was performed using a ISH machine. HISTORY: M81.0 - Age-related osteoporosis without current patholog... COMPARISON: 01/12/2022 Lumbar spine BMD (L1-L4): 0.866 g/cm2 T score: -2.6 Z score: -1.4 Total hip BMD: Left: 0.675 g/cm2. T score: -2.6 Z score: -1.6 Right: 0.793 g/cm2. T score: -1.7 Z score: -0.6 10 year probability of a major osteoporotic fracture is 27.1%. Compared to the prior study from 01/12/2022. Lumbar spine bone mineral density has increased by 4.2%. Bilateral hips bone mineral density has decreased by 2.7%. XR/XR DEXA axial skeleton* [id number] IMPRESSION: OSTEOPOROSIS based upon the WHO classification for females. Significant increase in bone mineral density within the lumbar spine since the prior exam. Significant decrease of bone mineral density within the hips since the prior ex am.
== END 2024-01-06 12:44 | disposition home or self-care (01) ==
LOC: RAD 12:43
PROVIDERS: PCP Nurse Practitioner Family; Visit Provider Nurse Practitioner Family
DX: M81.0 Age-related osteoporosis without current pathological fracture (principal)
CPT/HCPCS: 77080

== ENCOUNTER → 2024-06-08 14:27 | Outpatient (BNVA) | payer MEDICARE, SELFPAY | PROVIDERS: PCP Nurse Practitioner Family; Visit Provider Nurse Practitioner Family | DX: R68.89 Other general symptoms and signs (principal); R10.9 Unspecified abdominal pain; N39.0 Urinary tract infection, site not specified | CPT/HCPCS: 80053; 81003; 82306; 87400; 87426 ==

== ENCOUNTER → 2024-06-09 09:23 | Outpatient (BNVA) | payer MEDICARE, SELFPAY | PROVIDERS: PCP Nurse Practitioner Family; Visit Provider Nurse Practitioner Family | DX: E55.9 Vitamin D deficiency, unspecified (principal); M81.0 Age-related osteoporosis without current pathological fracture; N30.01 Acute cystitis with hematuria | CPT/HCPCS: 80053; 82306; 85025 ==

== ENCOUNTER 2025-04-06 13:22 | Outpatient (CLI) | payer MEDICARE, SELFPAY ==
--- NOTE | 2025-04-06 13:20 | MM_ITS ---
WS: [id number] BILATERAL 3D TOMOSYNTHESIS DIGITAL SCREENING MAMMOGRAPHY WITH CAD CLINICAL INFORMATION: Z12.31 - Encounter for screening mammogram for malignant ... HISTORY: Screening mammogram. No current complaints. COMPARISON: 10/30/2023 TECHNIQUE: Bilateral CC and MLO views. FINDINGS: Scattered fibroglandular densities bilaterally. No suspicious focal mass, asymmetry, calcifications, or architectural distortion. No evidence of malignancy. Incidental punctate calcifications. MM/MM [facility] tomosynthesis [id number] IMPRESSION: DENSITY: There are scattered areas of fibroglandular density. BI-RADS: 2 - Benign. FOLLOW UP: 1 Year Follow-up Recommend return to annual screening mammography.
== END 2025-04-06 13:23 | disposition home or self-care (01) ==
PROVIDERS: PCP Nurse Practitioner Family; Visit Provider Nurse Practitioner Family
DX: Z12.31 Encounter for screening mammogram for malignant neoplasm of breast (principal)
CPT/HCPCS: 77063; 77067

== ENCOUNTER → 2025-07-27 10:31 | Outpatient (BNVA) | payer MEDICARE, SELFPAY | PROVIDERS: PCP Nurse Practitioner Family; Visit Provider Nurse Practitioner Family | DX: R30.0 Dysuria (principal); R39.89 Other symptoms and signs involving the genitourinary system | CPT/HCPCS: 81003; 87077; 87086; 87184 ==

== ENCOUNTER → 2025-07-28 08:24 | Outpatient (BNVA) | payer MEDICARE, SELFPAY | PROVIDERS: PCP Nurse Practitioner Family; Visit Provider Nurse Practitioner Family | DX: E55.9 Vitamin D deficiency, unspecified (principal); Z79.899 Other long term (current) drug therapy; E78.00 Pure hypercholesterolemia, unspecified; G43.009 Migraine without aura, not intractable, without status migrainosus; N30.01 Acute cystitis with hematuria | CPT/HCPCS: 80053; 80061; 82306; 82607; 82746; 83036; 83550; 84443; 85025 ==